=== PATIENT | male | born 1940 | race Two or more races ===

== ENCOUNTER 2021-02-05 21:39 | Inpatient (IN) | payer MEDICARE, OTHER ==
[~2021-02-05] VITALS: Ht 170.2 cm; Wt 65.8 kg
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
[2021-02-05 23:05] LABS: BASOPHILS # (AUTO) 0.2 K/uL (0.0-0.2); BASOPHILS % (AUTO) 3.4 % (0.0-2.0); EOSINOPHILS % (AUTO) 0.4 % (0.0-6.0); HEMATOCRIT 35 % (39-51); HEMOGLOBIN 11.7 g/dL (13.5-17.5); LYMPHOCYTES # (AUTO) 1.5 K/uL (0.8-4.8); LYMPHOCYTES % (AUTO) 26.3 % (20.0-44.0); MEAN CORPUSCULAR HGB CONC 33 g/dl (31.0-36.0); MEAN CORPUSCULAR VOLUME 91 fL (80-96); MONOCYTES # (AUTO) 0.4 K/uL (0.1-1.30); MONOCYTES % (AUTO) 7.3 % (2.0-12.0); NEUTROPHILS # (AUTO) 3.5 K/uL (1.8-8.9); NEUTROPHILS % (AUTO) 62.6 % (43.0-81.0); PLATELET COUNT (AUTO) 257 K/uL (150-450); RED BLOOD CELL COUNT(AUTO) 3.86 MIL/uL (4.5-6.0); WHITE BLOOD COUNT (AUTO) 5.7 K/uL (4.3-11.0)
[2021-02-05 23:22] LABS: BILIRUBIN,URINE Negative (NEGATIVE); COLOR,URINE YELLOW (YELLOW); LEUKOCYTE ESTERASE ,URINE Negative (NEGATIVE); NITRITE, URINE Negative (NEGATIVE); PH,URINE 5.5 (5.0-8.0); PROTEIN,URINE >=300 mg/dl (NEGATIVE); UGLUCOSE 250 MG/DL mg/dL (NEGATIVE); UROBILINOGEN,URINE 0.2 EU/dL (0.2)
[2021-02-05 23:27] LABS: BACTERIA,URINE Rare /HPF (None Seen); SQUAMOUS EPITHELIAL CELL,UR Few /HPF (None Seen); WBC,URINE NONE SEEN /HPF (0-3)
[2021-02-05 23:29] LABS: ALANINE AMINOTRANSFERASE 15 U/L (12-78); ALBUMIN 3.1 g/dL (3.4-5.0); ALKALINE PHOSPHATASE 99 U/L (46-116); ASPARTATE AMINOTRANSFERASE 15 U/L (15-37); BILIRUBIN,DIRECT 0.1 mg/dL (0.0-0.2); BILIRUBIN,TOTAL 0.1 mg/dL (0.2-1.0); CALCIUM, SERUM 8.4 mg/dL (8.5-10.1); CARBON DIOXIDE 24 mmol/L (21-32); CHLORIDE 101 mmol/L (98-107); CREATININE 1.9 mg/dL (0.6-1.3); GLUCOSE 97 mg/dL (74-106); POTASSIUM 4.8 mmol/L (3.5-5.1); SODIUM SERUM 133 mmol/L (136-145); TOTAL PROTEIN, SERUM 7.2 g/dL (6.4-8.2); UREA NITROGEN, BLOOD 34 mg/dL (7-18)
[2021-02-05 23:30] LABS: ACETAMINOPHEN < 2 ug/ml (10-30); ALCOHOL, BLOOD < 3 mg/dL (0-0)
[2021-02-06] VITALS (7 sets, daily range): BP systolic 138–159; BP diastolic 75–84
--- NOTE | 2021-02-06 00:15 | NUR ---
Patient is resting comfortably in bed with eyes closed. Easily aroused. VSS
--- NOTE | 2021-02-06 01:39 | NUR ---
ROOM ASSIGNMENT: 213-1 GPS
--- NOTE | 2021-02-06 01:39 | NUR ---
AWAITING FOR PSYCH DICE MANAGER
--- NOTE | 2021-02-06 01:46 | NUR ---
CALLED ESTEFANÍA CASTRO AND LEFT A MESSAGE
--- NOTE | 2021-02-06 02:05 | NUR ---
MRSA SWAB COLLECTED AND SENT TO LAB. PATIENT'S BELONGINGS LIST DONE.
--- NOTE | 2021-02-06 03:00 | NUR ---
gregorio [facility]ry [facility], at bedside
--- NOTE | 2021-02-06 03:00 | NUR ---
Sean roberto in [facility] - 02/06/21 at 0435 by CON kushal perkins, at bedside
--- NOTE | 2021-02-06 04:34 | NUR ---
REPORT GIVEN TO ANGELES OCAMPO FOR SHIRAZ
[2021-02-06] MEDS ORDERED: DICL1KIT14 TP (04:56)
[2021-02-06] MEDS ORDERED: MULT-754 PO (04:56)
[2021-02-06] MEDS ORDERED: DIVA500T54 PO (04:56)
[2021-02-06] MEDS ORDERED: ATOR40TA PO (04:56)
[2021-02-06] MEDS ORDERED: ACET650T10 PO (04:56)
[2021-02-06] MEDS ORDERED: ASPI-1420 PO (04:56)
[2021-02-06] MEDS ORDERED: METO25TA4 PO (04:56)
[2021-02-06] MEDS ORDERED: OMEG1CAP55 PO (04:56)
[2021-02-06] MEDS ORDERED: ISOS30TA86 PO (04:56)
[2021-02-06] MEDS ORDERED: TAMS-12 PO (04:56)
--- NOTE | 2021-02-06 05:28 | NUR ---
pt [place] with emt at bedside. pt is in stable condition for transport.
[2021-02-06] MEDS ORDERED: ACETAMINOPHEN 325 MG TABLET PO PRN (06:00)
[2021-02-06] MEDS ORDERED: MAGNESIUM HYDROXIDE 30 ML UDC PO PRN (06:00)
[2021-02-06] MEDS ORDERED: BLOOD SUGAR DIAGNOSTIC 1 EACH STRIP IN ONE (06:00)
[2021-02-06] MEDS ORDERED: MAG HYDROX/AL HYDROX/SIMETH 30 ML UDC PO PRN (06:00)
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
--- NOTE | 2021-02-06 07:04 | NUR ---
RN OPENING NOTES received patient awake in bed at this time, aox2, no s/o of any acute distress noted. denies si/hi, denies visual/auditory hallucination. safety precautions maintained per protocol and [id number] check per protocol
[2021-02-06] MEDS ORDERED: Medication Not On Formulary EA (Acetaminophen 650 MG) PO PRN (09:30)
--- NOTE | 2021-02-06 12:01 | NUR ---
JOHNNIE Initial Discharge Plan: Patient currently resides at [address], [place] [address]; ([phone]). Pt would want to return back upon dc. JOHNNIE will work with the MD, family, and treatment team to coordinate appropriate discharge.
--- NOTE | 2021-02-06 12:48 | NUR ---
JOHNNIE Family Contact: SW attempted to contact patient's son Henrry ([phone]) and went through voicemail, but mailbox is full.
--- NOTE | 2021-02-06 14:12 | NUR ---
SNF Contact: JOHNNIE contacted [facility] admin ([phone]) who stated they will need to discuss with treatment team to see if pt is welcomed back. [facility] will notify this SW.
[2021-02-06] MEDS ORDERED: DIVALPROEX SODIUM 500 MG PO SCH (17:00)
[2021-02-06] MEDS: ATORVASTATIN 40 MG TABLET PO SCH (17:13)
--- NOTE | 2021-02-06 18:09 | NUR ---
RN CLOSING NOTES PATIENT AWAKE , IN BED AT THIS TIME. PATIENT REMAINED STABLE THROUGHOUT SHIFT. PT DENIES SI/HI. ALL CARE, NEEDS, MEDICATIONS ADMINISTERED ANTICIPATED PER PROTOCOL. PT KEPT CLEAN AND DRY. REMAINED COMPLIANT THROUGHOUT SHIFT. SAFETY PRECAUTIONS IN PLACE AND MAINTAINED AT ALL TIMES. BED IN LOWEST LOCKED POSITION, HOB ELEVATED, SIDE RAILS UP X2, CALL LIGHT AND TABLE WITHIN REACH, [id number] MONITORING MAINTAINED. WILL ENDORSE TO MATERIAL CONTROL ANALYST NURSE FOR SHIRAZ
[2021-02-06] MEDS: clonazePAM 0.5 MG TABLET PO PRN (19:56)
--- NOTE | 2021-02-06 19:56 | NUR ---
RN NOTES: ANXIETY PT. NOTED VERY ANXIOUS SCREAMING YELLING PACING IN THE HALLWAY KLONOPIN 0.5 MG PO PRN GIVEN , WILL CONTINUE TO MONITOR.
[2021-02-06] MEDS: QUETIAPINE FUMARATE 25 MG TABLET PO SCH (21:20)
[2021-02-06] MEDS: DIVALPROEX SODIUM 250 MG TABLET.DR PO SCH (21:20)
[2021-02-07 08:00] VITALS: BP 120/59
[2021-02-07] MEDS: DIVALPROEX SODIUM 250 MG TABLET.DR PO SCH ×2 (08:22→21:01)
[2021-02-07] MEDS: MULTIVITAMINS,THERAGRAN 1 UDTAB TABLET PO SCH (08:22)
[2021-02-07] MEDS: TAMSULOSIN 0.4 MG CAP.SR.24H PO SCH (08:22)
[2021-02-07] MEDS: METOPROLOL SUCCINATE 25 MG TAB.SR.24H PO SCH (08:24)
[2021-02-07] MEDS: ISOSORBIDE MONONITRATE (30MG) 30 MG TAB.SR.24H PO SCH (08:24)
[2021-02-07] MEDS: QUETIAPINE FUMARATE 25 MG TABLET PO SCH ×2 (08:24→21:01)
[2021-02-07] MEDS: ASPIRIN EC 81 MG TABLET.DR PO SCH (08:27)
[2021-02-07 16:00] VITALS: BP 139/85
[2021-02-07] MEDS: ATORVASTATIN 40 MG TABLET PO SCH (17:15)
[2021-02-07 20:46] VITALS: BP 143/88
--- NOTE | 2021-02-08 05:03 | NUR ---
RN NOTES: REFUSED SKIN ASSESSMENT PT. REFUSED SKIN ASSESSMENT OFFERD X3 EXPLINED RISKS AND BENFITS STRONGLY REFUSED, PT.EASILY AGITATED,PARANOID , DISHELVED, UNCCOOPERTIVE ,PT. MY SKIN IS FINE, CHARGE NURSE MADE AWRE, WILL CONTINUE WITH CARE.
[2021-02-08 08:00] VITALS: BP 156/67
[2021-02-08] MEDS: MULTIVITAMINS,THERAGRAN 1 UDTAB TABLET PO SCH (08:16)
[2021-02-08] MEDS: QUETIAPINE FUMARATE 25 MG TABLET PO SCH ×2 (08:16→21:20)
[2021-02-08] MEDS: ASPIRIN EC 81 MG TABLET.DR PO SCH (08:16)
[2021-02-08] MEDS: DIVALPROEX SODIUM 250 MG TABLET.DR PO SCH ×2 (08:16→21:20)
[2021-02-08] MEDS: TAMSULOSIN 0.4 MG CAP.SR.24H PO SCH (08:17)
[2021-02-08] MEDS: ISOSORBIDE MONONITRATE (30MG) 30 MG TAB.SR.24H PO SCH (08:17)
[2021-02-08] MEDS: METOPROLOL SUCCINATE 25 MG TAB.SR.24H PO SCH (08:17)
[2021-02-08 16:06] VITALS: BP 137/70
[2021-02-08] MEDS: ATORVASTATIN 40 MG TABLET PO SCH (17:13)
--- NOTE | 2021-02-09 06:46 | NUR ---
RN NOTES : PT. PROVIDED URINE SPECIMEN , COLLECT URINE SPECIMEN AND SEND TO THE LAB.
[2021-02-09 06:57] LABS: BASOPHILS % (AUTO) 0.6 % (0.0-2.0); EOSINOPHILS % (AUTO) 2.3 % (0.0-6.0); HEMATOCRIT 32 % (39-51); HEMOGLOBIN 10.8 g/dL (13.5-17.5); LYMPHOCYTES # (AUTO) 1.9 K/uL (0.8-4.8); LYMPHOCYTES % (AUTO) 34.2 % (20.0-44.0); MEAN CORPUSCULAR HGB CONC 33 g/dl (31.0-36.0); MEAN CORPUSCULAR VOLUME 91 fL (80-96); MONOCYTES # (AUTO) 0.4 K/uL (0.1-1.30); MONOCYTES % (AUTO) 7.9 % (2.0-12.0); NEUTROPHILS # (AUTO) 3.1 K/uL (1.8-8.9); PLATELET COUNT (AUTO) 207 K/uL (150-450); RED BLOOD CELL COUNT(AUTO) 3.55 MIL/uL (4.5-6.0); WHITE BLOOD COUNT (AUTO) 5.6 K/uL (4.3-11.0)
[2021-02-09 07:28] LABS: ALANINE AMINOTRANSFERASE 13 U/L (12-78); ALBUMIN 2.7 g/dL (3.4-5.0); ALKALINE PHOSPHATASE 84 U/L (46-116); ASPARTATE AMINOTRANSFERASE 14 U/L (15-37); BILIRUBIN,TOTAL 0.1 mg/dL (0.2-1.0); CALCIUM, SERUM 8.2 mg/dL (8.5-10.1); CARBON DIOXIDE 20 mmol/L (21-32); CHLORIDE 104 mmol/L (98-107); CREATININE 2.1 mg/dL (0.6-1.3); GLUCOSE 87 mg/dL (74-106); MAGNESIUM 2.5 mg/dL (1.8-2.4); PHOSPHORUS 4.9 mg/dL (2.5-4.9); POTASSIUM 4.8 mmol/L (3.5-5.1); SODIUM SERUM 136 mmol/L (136-145); TOTAL PROTEIN, SERUM 6.4 g/dL (6.4-8.2); UREA NITROGEN, BLOOD 52 mg/dL (7-18)
[2021-02-09 07:31] LABS: CREATINE KINASE, TOTAL 22 U/L (39-308)
[2021-02-09 08:00] VITALS: BP 141/76
[2021-02-09] MEDS: DIVALPROEX SODIUM 250 MG TABLET.DR PO SCH ×2 (08:57→21:12)
[2021-02-09] MEDS: QUETIAPINE FUMARATE 25 MG TABLET PO SCH ×2 (08:57→21:14)
[2021-02-09] MEDS: MULTIVITAMINS,THERAGRAN 1 UDTAB TABLET PO SCH (08:57)
[2021-02-09] MEDS: ISOSORBIDE MONONITRATE (30MG) 30 MG TAB.SR.24H PO SCH (08:58)
[2021-02-09] MEDS: METOPROLOL SUCCINATE 25 MG TAB.SR.24H PO SCH (08:58)
[2021-02-09] MEDS: ASPIRIN EC 81 MG TABLET.DR PO SCH (08:58)
[2021-02-09] MEDS: TAMSULOSIN 0.4 MG CAP.SR.24H PO SCH (08:59)
[2021-02-09 11:10] LABS: BILIRUBIN,URINE NEGATIVE (NEGATIVE); COLOR,URINE YELLOW (YELLOW); LEUKOCYTE ESTERASE ,URINE NEGATIVE (NEGATIVE); NITRITE, URINE NEGATIVE (NEGATIVE); PROTEIN,URINE 100 mg/dl (NEGATIVE); UGLUCOSE 100 MG/DL mg/dL (NEGATIVE); UROBILINOGEN,URINE 0.2 EU/dL (0.2)
[2021-02-09 11:19] LABS: CREATININE, URINE 86.5 MG/DL (30.0-125.0); URINE TOTAL PROTEIN 71.4 mg/dL (0-11.9)
[2021-02-09 12:06] LABS: BACTERIA,URINE Rare /HPF (None Seen); RBC,URINE 0-2 /HPF (0-2); SQUAMOUS EPITHELIAL CELL,UR Few /HPF (None Seen); WBC,URINE 0-3 /HPF (0-3)
[2021-02-09 13:54] LABS: EOSINOPHIL,URINE None Seen
[2021-02-09 16:00] VITALS: BP 110/59
[2021-02-09] MEDS: ATORVASTATIN 40 MG TABLET PO SCH (17:04)
[2021-02-09 20:09] VITALS: BP_SYST 162; BP_SYST 182; BP_DIAS 76; BP_DIAS 79
[2021-02-09 20:22] VITALS: BP 162/76
[2021-02-09 21:40] VITALS: BP 149/78
[2021-02-10 08:00] VITALS: BP 160/75
[2021-02-10] MEDS: TAMSULOSIN 0.4 MG CAP.SR.24H PO SCH (08:40)
[2021-02-10] MEDS: ISOSORBIDE MONONITRATE (30MG) 30 MG TAB.SR.24H PO SCH (08:41)
[2021-02-10] MEDS: METOPROLOL SUCCINATE 25 MG TAB.SR.24H PO SCH (08:41)
[2021-02-10] MEDS: DIVALPROEX SODIUM 250 MG TABLET.DR PO SCH ×2 (08:41→21:40)
[2021-02-10] MEDS: MULTIVITAMINS,THERAGRAN 1 UDTAB TABLET PO SCH (08:41)
[2021-02-10] MEDS: QUETIAPINE FUMARATE 25 MG TABLET PO SCH ×2 (08:41→21:40)
[2021-02-10] MEDS: ASPIRIN EC 81 MG TABLET.DR PO SCH (08:41)
--- NOTE | 2021-02-10 09:00 | NUR ---
RN NOTE- PT QUIET WITHDRAWN MED COMPLIANT PO INTAKE FAIR, CONFUSED
[2021-02-10 15:06] LABS: *SPE A/G RATIO 0.7 (0.7-1.7); *SPE ALPHA-1-GLOBULIN 0.1 g/dL (0.0-0.4); *SPE ALPHA-2-GLOBULIN 0.6 g/dL (0.4-1.0); *SPE M-SPIKE Not Observed g/dL (Not Observed)
[2021-02-10 16:00] VITALS: BP 124/65
[2021-02-10] MEDS: ATORVASTATIN 40 MG TABLET PO SCH (18:02)
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
--- NOTE | 2021-02-10 20:00 | NUR ---
Resident approached nursing station and inquired with staff regarding how long he would be on hold and when he would be allowed to leave. Resident informed of his rights and advised usual hold for 5250 is 14 days. Resident became irate and combative towards CLINICAL ANALYST staff.Redirected resident to room with staff.Resident calmed down in room.Left safe in bed with all needs met.Resident wanted to file grievance,forms provided.
[2021-02-10 20:55] VITALS: BP 152/76
[2021-02-10] MEDS: TEMAZEPAM 7.5 MG CAPSULE PO PRN (21:40)
[2021-02-11 08:00] VITALS: BP 184/77
[2021-02-11] MEDS: MULTIVITAMINS,THERAGRAN 1 UDTAB TABLET PO SCH (09:05)
[2021-02-11] MEDS: DIVALPROEX SODIUM 250 MG TABLET.DR PO SCH ×2 (09:05→20:46)
[2021-02-11] MEDS: QUETIAPINE FUMARATE 25 MG TABLET PO SCH ×2 (09:05→20:46)
[2021-02-11] MEDS: METOPROLOL SUCCINATE 25 MG TAB.SR.24H PO SCH (09:06)
[2021-02-11] MEDS: ASPIRIN EC 81 MG TABLET.DR PO SCH (09:06)
[2021-02-11] MEDS: ISOSORBIDE MONONITRATE (30MG) 30 MG TAB.SR.24H PO SCH (09:06)
[2021-02-11] MEDS: TAMSULOSIN 0.4 MG CAP.SR.24H PO SCH (09:06)
--- NOTE | 2021-02-11 10:02 | NUR ---
Court Hearing: Patient's court hearing for 4730 was today and it was upheld for GD and danger to others.
--- NOTE | 2021-02-11 10:11 | NUR ---
SNF Contact: JOHNNIE contacted [facility] ([phone]) who stated pt is welcomed back upon dc.
[2021-02-11 15:45] LABS: CARBON DIOXIDE 26 mmol/L (21-32); CHLORIDE 105 mmol/L (98-107); GLUCOSE 102 mg/dL (74-106); POTASSIUM 4.8 mmol/L (3.5-5.1); SODIUM SERUM 140 mmol/L (136-145); UREA NITROGEN, BLOOD 53 mg/dL (7-18)
[2021-02-11 16:07] VITALS: BP 141/78
[2021-02-11] MEDS: ATORVASTATIN 40 MG TABLET PO SCH (18:10)
[2021-02-11 19:58] VITALS: BP 154/90
[2021-02-12 08:00] VITALS: BP 154/67
--- NOTE | 2021-02-12 09:00 | NUR ---
RN-CO: ENCOURAGED FLUIDS EVERY 2 HOURS.
[2021-02-12] MEDS: MULTIVITAMINS,THERAGRAN 1 UDTAB TABLET PO SCH (09:21)
[2021-02-12] MEDS: ISOSORBIDE MONONITRATE (30MG) 30 MG TAB.SR.24H PO SCH (09:22)
[2021-02-12] MEDS: ASPIRIN EC 81 MG TABLET.DR PO SCH (09:22)
[2021-02-12] MEDS: DIVALPROEX SODIUM 250 MG TABLET.DR PO SCH ×2 (09:22→20:42)
[2021-02-12] MEDS: METOPROLOL SUCCINATE 25 MG TAB.SR.24H PO SCH (09:22)
[2021-02-12] MEDS: TAMSULOSIN 0.4 MG CAP.SR.24H PO SCH (09:22)
[2021-02-12] MEDS: QUETIAPINE FUMARATE 25 MG TABLET PO SCH ×2 (09:22→20:42)
[2021-02-12 12:37] LABS: CALCIUM, SERUM 8.3 mg/dL (8.5-10.1); CARBON DIOXIDE 19 mmol/L (21-32); CHLORIDE 107 mmol/L (98-107); GLUCOSE 88 mg/dL (74-106); SODIUM SERUM 139 mmol/L (136-145); UREA NITROGEN, BLOOD 54 mg/dL (7-18)
[2021-02-12 12:43] LABS: ALANINE AMINOTRANSFERASE 16 U/L (12-78); ALBUMIN 2.8 g/dL (3.4-5.0); ALKALINE PHOSPHATASE 79 U/L (46-116); ASPARTATE AMINOTRANSFERASE 27 U/L (15-37); BILIRUBIN,TOTAL 0.2 mg/dL (0.2-1.0); TOTAL PROTEIN, SERUM 6.5 g/dL (6.4-8.2)
[2021-02-12 16:00] VITALS: BP 157/85
[2021-02-12] MEDS: AMLODIPINE BESYLATE 5 MG TABLET PO SCH (16:17)
[2021-02-12] MEDS: ATORVASTATIN 40 MG TABLET PO SCH (17:13)
[2021-02-12] MEDS: clonazePAM 0.5 MG TABLET PO PRN (19:41)
[2021-02-13 07:04] LABS: BASOPHILS % (AUTO) 0.7 % (0.0-2.0); EOSINOPHILS % (AUTO) 1.9 % (0.0-6.0); HEMATOCRIT 32 % (39-51); HEMOGLOBIN 10.6 g/dL (13.5-17.5); LYMPHOCYTES # (AUTO) 1.6 K/uL (0.8-4.8); LYMPHOCYTES % (AUTO) 35.4 % (20.0-44.0); MEAN CORPUSCULAR HGB CONC 34 g/dl (31.0-36.0); MEAN CORPUSCULAR VOLUME 91 fL (80-96); MONOCYTES # (AUTO) 0.4 K/uL (0.1-1.30); MONOCYTES % (AUTO) 8.5 % (2.0-12.0); NEUTROPHILS # (AUTO) 2.3 K/uL (1.8-8.9); NEUTROPHILS % (AUTO) 53.5 % (43.0-81.0); PLATELET COUNT (AUTO) 162 K/uL (150-450); RED BLOOD CELL COUNT(AUTO) 3.46 MIL/uL (4.5-6.0); WHITE BLOOD COUNT (AUTO) 4.4 K/uL (4.3-11.0)
[2021-02-13 07:27] LABS: CALCIUM, SERUM 8.2 mg/dL (8.5-10.1); CARBON DIOXIDE 23 mmol/L (21-32); CHLORIDE 106 mmol/L (98-107); GLUCOSE 87 mg/dL (74-106); MAGNESIUM 2.2 mg/dL (1.8-2.4); PHOSPHORUS 4.5 mg/dL (2.5-4.9); POTASSIUM 4.6 mmol/L (3.5-5.1); SODIUM SERUM 137 mmol/L (136-145); UREA NITROGEN, BLOOD 53 mg/dL (7-18)
[2021-02-13 08:00] VITALS: BP 151/65
[2021-02-13] MEDS: DIVALPROEX SODIUM 250 MG TABLET.DR PO SCH ×2 (08:12→20:46)
[2021-02-13] MEDS: AMLODIPINE BESYLATE 5 MG TABLET PO SCH (08:13)
[2021-02-13] MEDS: ASPIRIN EC 81 MG TABLET.DR PO SCH (08:13)
[2021-02-13] MEDS: ISOSORBIDE MONONITRATE (30MG) 30 MG TAB.SR.24H PO SCH (08:13)
[2021-02-13] MEDS: TAMSULOSIN 0.4 MG CAP.SR.24H PO SCH (08:13)
[2021-02-13] MEDS: QUETIAPINE FUMARATE 25 MG TABLET PO SCH ×2 (08:13→20:46)
[2021-02-13] MEDS: MULTIVITAMINS,THERAGRAN 1 UDTAB TABLET PO SCH (08:13)
[2021-02-13] MEDS: METOPROLOL SUCCINATE 25 MG TAB.SR.24H PO SCH (08:14)
[2021-02-13] MEDS ORDERED: AMLODIPINE BESYLATE 5 MG TABLET PO ONE (11:30)
[2021-02-13] MEDS: clonazePAM 0.5 MG TABLET PO PRN (11:36)
[2021-02-13 16:00] VITALS: BP 116/62
[2021-02-13] MEDS: ATORVASTATIN 40 MG TABLET PO SCH (17:13)
[2021-02-13 19:55] VITALS: BP 120/58
--- NOTE | 2021-02-14 06:36 | NUR ---
RN CLOSING NOTES PATIENT AWAKE IN BED AT THIS TIME. PATIENT REMAINED STABLE THROUGHOUT SHIFT. PT IS CALM AT THIS TIME, PT DENIES SI/HI. DENIES VISUAL AND AUDITORY HALLUCINATION. NO TREMORS OR EPS NOTED. SAFETY PRECAUTIONS IN PLACE AND MAINTAINED AT ALL TIMES. BED IN LOWEST LOCKED POSITION, HOB ELEVATED, SIDE RAILS UP X2, CALL LIGHT AND TABLE WITHIN REACH, WILL ENDORSE TO SECURITY CONTROL CENTER OPERATOR NURSE FOR CO Addendum: 02/14/21 at 0638 by MIKHAIL HARRELL RN RN CLOSING NOTES PATIENT AWAKE IN BED AT THIS TIME. PATIENT REMAINED STABLE THROUGHOUT SHIFT. PT IS CALM AT THIS TIME, PT DENIES SI/HI. DENIES VISUAL AND AUDITORY HALLUCINATION. NO TREMORS OR EPS NOTED. SAFETY PRECAUTIONS IN PLACE AND MAINTAINED AT ALL TIMES. BED IN LOWEST LOCKED POSITION, HOB ELEVATED, SIDE RAILS UP X2, CALL LIGHT AND TABLE WITHIN REACH, WILL ENDORSE TO SHIFT NURSE FOR CO
[2021-02-14 08:00] VITALS: BP_SYST 139; BP_SYST 157; BP_DIAS 63; BP_DIAS 76
[2021-02-14] MEDS: QUETIAPINE FUMARATE 25 MG TABLET PO SCH ×2 (08:38→21:22)
[2021-02-14] MEDS: ASPIRIN EC 81 MG TABLET.DR PO SCH (08:38)
[2021-02-14] MEDS: TAMSULOSIN 0.4 MG CAP.SR.24H PO SCH (08:38)
[2021-02-14] MEDS: MULTIVITAMINS,THERAGRAN 1 UDTAB TABLET PO SCH (08:38)
[2021-02-14] MEDS: DIVALPROEX SODIUM 250 MG TABLET.DR PO SCH ×2 (08:39→21:22)
[2021-02-14] MEDS: METOPROLOL SUCCINATE 25 MG TAB.SR.24H PO SCH (08:39)
[2021-02-14] MEDS: AMLODIPINE BESYLATE 10 MG TABLET PO SCH (08:39)
[2021-02-14] MEDS: ISOSORBIDE MONONITRATE (30MG) 30 MG TAB.SR.24H PO SCH (08:40)
[2021-02-14] MEDS: ATORVASTATIN 40 MG TABLET PO SCH (17:13)
[2021-02-14 20:21] VITALS: BP 160/79
[2021-02-15 08:00] VITALS: BP 157/69
[2021-02-15] MEDS: MULTIVITAMINS,THERAGRAN 1 UDTAB TABLET PO SCH (08:30)
[2021-02-15] MEDS: QUETIAPINE FUMARATE 25 MG TABLET PO SCH ×3 (08:30→16:15)
[2021-02-15] MEDS: ASPIRIN EC 81 MG TABLET.DR PO SCH (08:30)
[2021-02-15] MEDS: AMLODIPINE BESYLATE 10 MG TABLET PO SCH (08:30)
[2021-02-15] MEDS: TAMSULOSIN 0.4 MG CAP.SR.24H PO SCH (08:30)
[2021-02-15] MEDS: DIVALPROEX SODIUM 250 MG TABLET.DR PO SCH ×2 (08:30→21:30)
[2021-02-15] MEDS: ISOSORBIDE MONONITRATE (30MG) 30 MG TAB.SR.24H PO SCH (08:31)
[2021-02-15] MEDS: METOPROLOL SUCCINATE 25 MG TAB.SR.24H PO SCH (08:31)
[2021-02-15] MEDS: LISINOPRIL (10MG) 10 MG TABLET PO SCH (10:30)
[2021-02-15 16:00] VITALS: BP 143/81
[2021-02-15] MEDS: ATORVASTATIN 40 MG TABLET PO SCH (18:10)
[2021-02-15 20:01] VITALS: BP 146/73
[2021-02-16 08:00] VITALS: BP 156/60
[2021-02-16] MEDS: MULTIVITAMINS,THERAGRAN 1 UDTAB TABLET PO SCH (08:08)
[2021-02-16] MEDS: TAMSULOSIN 0.4 MG CAP.SR.24H PO SCH (08:08)
[2021-02-16] MEDS: ASPIRIN EC 81 MG TABLET.DR PO SCH (08:08)
[2021-02-16] MEDS: LISINOPRIL (10MG) 10 MG TABLET PO SCH (08:08)
[2021-02-16] MEDS: AMLODIPINE BESYLATE 10 MG TABLET PO SCH (08:08)
[2021-02-16] MEDS: QUETIAPINE FUMARATE 25 MG TABLET PO SCH ×3 (08:08→16:42)
[2021-02-16] MEDS: ISOSORBIDE MONONITRATE (30MG) 30 MG TAB.SR.24H PO SCH (08:09)
[2021-02-16] MEDS: METOPROLOL SUCCINATE 25 MG TAB.SR.24H PO SCH (08:09)
[2021-02-16] MEDS: DIVALPROEX SODIUM 250 MG TABLET.DR PO SCH ×2 (08:09→21:35)
[2021-02-16 16:00] VITALS: BP 115/78
[2021-02-16] MEDS: ATORVASTATIN 40 MG TABLET PO SCH (16:42)
[2021-02-16 19:52] VITALS: BP 127/75
--- NOTE | 2021-02-16 20:19 | NUR ---
Per Barrel Assembly Inspector Pt refused blood draw. Offered x3 and explained risk and benefits. Still refused. Charge Nurse aware.
[2021-02-16] MEDS: TEMAZEPAM 7.5 MG CAPSULE PO PRN (21:36)
--- NOTE | 2021-02-16 21:38 | NUR ---
Pt c/o generalized body pain 05/29. Tylenol 650 mg po prn given as ordered. Pt c/o insomnia. Least restrictive measures ineffective. Restoril 15 mg po prn given as ordered. Will continue to monitor.
--- NOTE | 2021-02-16 22:39 | NUR ---
Post 1 hr tylenol effective. VT 0/10. Restoril effective. Pt asleep in bed easy to arouse. Will continue to monitor. Frequent visual check done for safety. Will endorse to next shift.
[2021-02-17 08:00] VITALS: BP 150/82
--- NOTE | 2021-02-17 09:05 | NUR ---
SNF Contact: SW contacted [facility] admin ([phone]) and the clinic receptionist stated that [facility] is sick and unavailable and that they don't have any admissions available at this time.
[2021-02-17] MEDS: ASPIRIN EC 81 MG TABLET.DR PO SCH (10:04)
[2021-02-17] MEDS: AMLODIPINE BESYLATE 10 MG TABLET PO SCH (10:04)
[2021-02-17] MEDS: TAMSULOSIN 0.4 MG CAP.SR.24H PO SCH (10:04)
[2021-02-17] MEDS: DIVALPROEX SODIUM 250 MG TABLET.DR PO SCH ×2 (10:05→20:51)
[2021-02-17] MEDS: METOPROLOL SUCCINATE 25 MG TAB.SR.24H PO SCH (10:05)
[2021-02-17] MEDS: QUETIAPINE FUMARATE 25 MG TABLET PO SCH ×3 (10:06→17:43)
[2021-02-17] MEDS: ISOSORBIDE MONONITRATE (30MG) 30 MG TAB.SR.24H PO SCH (10:06)
[2021-02-17] MEDS: MULTIVITAMINS,THERAGRAN 1 UDTAB TABLET PO SCH (10:06)
[2021-02-17] MEDS: LISINOPRIL (10MG) 10 MG TABLET PO SCH (10:08)
--- NOTE | 2021-02-17 13:06 | NUR ---
SNF Contact: JOHNNIE spoke with Colleen nursing supervisor heat treating ([phone]) from [facility]. SW notified of pt's discharge on 02/19/2021. She stated admissions has to re-admit pt but will notify staff of his arrival on 02/19/2021. JOHNNIE will follow up with [facility] Bess from admissions on 02/18/2021. JOHNNIE faxed updated clinicals to ([phone]).
[2021-02-17 16:00] VITALS: BP 120/57
[2021-02-17] MEDS: ATORVASTATIN 40 MG TABLET PO SCH (17:44)
[2021-02-17] MEDS: TEMAZEPAM 7.5 MG CAPSULE PO PRN (22:37)
[2021-02-18 08:00] VITALS: BP 161/76
[2021-02-18] MEDS: LISINOPRIL (10MG) 10 MG TABLET PO SCH (08:52)
[2021-02-18] MEDS: DIVALPROEX SODIUM 250 MG TABLET.DR PO SCH ×2 (08:52→21:02)
[2021-02-18] MEDS: METOPROLOL SUCCINATE 25 MG TAB.SR.24H PO SCH (08:52)
[2021-02-18] MEDS: TAMSULOSIN 0.4 MG CAP.SR.24H PO SCH (08:53)
[2021-02-18] MEDS: QUETIAPINE FUMARATE 25 MG TABLET PO SCH ×3 (08:53→16:52)
[2021-02-18] MEDS: AMLODIPINE BESYLATE 10 MG TABLET PO SCH (08:53)
[2021-02-18] MEDS: ASPIRIN EC 81 MG TABLET.DR PO SCH (08:53)
[2021-02-18] MEDS: MULTIVITAMINS,THERAGRAN 1 UDTAB TABLET PO SCH (08:53)
[2021-02-18] MEDS: ISOSORBIDE MONONITRATE (30MG) 30 MG TAB.SR.24H PO SCH (08:53)
--- NOTE | 2021-02-18 10:37 | NUR ---
SNF Contact: SW spoke with Purnima Eason from [facility] ([phone]) who stated pt is welcomed back tomorrow.
--- NOTE | 2021-02-18 10:38 | NUR ---
JOHNNIE Family Contact: JOHNNIE attempted to contact patient's son Henrry ([phone]) and notified of patient's discharge tomorrow 02/19 back to [facility]. JOHNNIE was unable to leave a voicemail. JOHNNIE sent a text message on personal phone to notify son.
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
--- NOTE | 2021-02-18 13:54 | NUR ---
SNF Contact: SW spoke with Purnima Eason from [facility] ([phone]) who stated again that they cannot accept pt back.
--- NOTE | 2021-02-18 13:55 | NUR ---
JOHNNIE Family Contact: SW attempted to contact patient's son Henrry ([phone]). This is the second attempt SW attempted to contact but does not have a voicemail set up. JOHNNIE texted Henrry multiple times of this issue that [facility] cannot take pt back and that pt is wanting to go to another facility.
--- NOTE | 2021-02-18 13:56 | NUR ---
JOHNNIE Note: JOHNNIE spoke with patient and he stated he does not want to go back to [facility] and wants to go to another facility and is open for this appeals writer to find a facility in the [place] location.
[2021-02-18 16:01] VITALS: BP 122/59
[2021-02-18] MEDS: ATORVASTATIN 40 MG TABLET PO SCH (17:02)
[2021-02-18 20:00] VITALS: BP 149/73
[2021-02-18] MEDS: TEMAZEPAM 7.5 MG CAPSULE PO PRN (22:02)
--- NOTE | 2021-02-18 22:04 | NUR ---
GPS RN NOTES: Patient requested for sleep medication d/t insomnia. Restoril 15mg given PO at 2202. Will continue to monitor.
[2021-02-19 08:00] VITALS: BP 118/59
[2021-02-19] MEDS: ASPIRIN EC 81 MG TABLET.DR PO SCH (09:25)
[2021-02-19] MEDS: TAMSULOSIN 0.4 MG CAP.SR.24H PO SCH (09:26)
[2021-02-19] MEDS: MULTIVITAMINS,THERAGRAN 1 UDTAB TABLET PO SCH (09:26)
[2021-02-19] MEDS: QUETIAPINE FUMARATE 25 MG TABLET PO SCH ×3 (09:26→16:30)
[2021-02-19] MEDS: DIVALPROEX SODIUM 250 MG TABLET.DR PO SCH ×2 (09:26→20:28)
[2021-02-19] MEDS: ISOSORBIDE MONONITRATE (30MG) 30 MG TAB.SR.24H PO SCH (09:38)
[2021-02-19] MEDS: METOPROLOL SUCCINATE 25 MG TAB.SR.24H PO SCH (09:38)
[2021-02-19] MEDS: AMLODIPINE BESYLATE 10 MG TABLET PO SCH (09:39)
[2021-02-19] MEDS: LISINOPRIL (10MG) 10 MG TABLET PO SCH (09:40)
--- NOTE | 2021-02-19 09:47 | NUR ---
SNF Referral: SW sent clinicals to [facility] directly to [facility] ([phone]) for placement option.
--- NOTE | 2021-02-19 09:51 | NUR ---
JOHNNIE SNF Referral/Contact: JOHNNIE sent clinicals to Abbey from [facility] ([phone]) who denied pt due to behavior issues. JOHNNIE had sent H & P notes, progress notes, and medication list.
--- NOTE | 2021-02-19 09:54 | NUR ---
SNF Referral: SW sent clinicals to Austin Arellano [facility] ([phone]) for placement option. SW sent H & P notes, progress notes, and medication list.
--- NOTE | 2021-02-19 13:40 | NUR ---
SNF Contact: SW received a call from [facility] from [facility] admin ([phone]) who stated that pt is accepted.
--- NOTE | 2021-02-19 13:41 | NUR ---
SW Note: SW met with pt and stated he is accepted at [facility] and he was agreeable of going to this facility.
--- NOTE | 2021-02-19 13:43 | NUR ---
JOHNNIE Family Contact: SW attempted to contact patient's son Henrry ([phone]), he was unavailable, and voicemail is not set up for this SW to leave a message. SW sent a message with cellphone informing of pt's discharge and that pt is accepted at [facility] and that pt is agreeable with going to this facility.
--- NOTE | 2021-02-19 15:52 | NUR ---
SW Family Contact: Pt's son Henrry ([phone]) responded to this writers personal cellphone in regards to message being sent that pt is accepted at [facility] and will discharge wednesday 02/21. He stated "Okay". He stated that he has been busy with work and it has been difficult for him to be in communication with this SW.
[2021-02-19 16:00] VITALS: BP 116/58
[2021-02-19] MEDS: ATORVASTATIN 40 MG TABLET PO SCH (17:30)
[2021-02-19 20:00] VITALS: BP 112/59
[2021-02-19] MEDS: TEMAZEPAM 7.5 MG CAPSULE PO PRN (20:28)
[2021-02-20 08:00] VITALS: BP_SYST 127; BP_SYST 138; BP_DIAS 58; BP_DIAS 64
[2021-02-20] MEDS: AMLODIPINE BESYLATE 10 MG TABLET PO SCH (09:25)
[2021-02-20] MEDS: TAMSULOSIN 0.4 MG CAP.SR.24H PO SCH (09:25)
[2021-02-20] MEDS: MULTIVITAMINS,THERAGRAN 1 UDTAB TABLET PO SCH (09:26)
[2021-02-20] MEDS: DIVALPROEX SODIUM 250 MG TABLET.DR PO SCH ×2 (09:26→21:13)
[2021-02-20] MEDS: ASPIRIN EC 81 MG TABLET.DR PO SCH (09:26)
[2021-02-20] MEDS: QUETIAPINE FUMARATE 25 MG TABLET PO SCH ×3 (09:26→16:26)
[2021-02-20] MEDS: ISOSORBIDE MONONITRATE (30MG) 30 MG TAB.SR.24H PO SCH (09:26)
[2021-02-20] MEDS: LISINOPRIL (10MG) 10 MG TABLET PO SCH (09:27)
[2021-02-20] MEDS: METOPROLOL SUCCINATE 25 MG TAB.SR.24H PO SCH (09:27)
[2021-02-20 16:00] VITALS: BP 137/68
[2021-02-20] MEDS: ATORVASTATIN 40 MG TABLET PO SCH (17:42)
[2021-02-20 20:00] VITALS: BP 122/52
[2021-02-20 21:30] VITALS: BP 123/67
--- NOTE | 2021-02-21 06:41 | NUR ---
RN NOTES: COVID SWAB COLLECTED AND SENT TO LAB
[2021-02-21 08:00] VITALS: BP 156/71
--- NOTE | 2021-02-21 08:10 | NUR ---
SW Discharge Note: Patient will be discharged to [facility] facility [facility] located at [address] [place] [address]; ([phone]). Please arrange ambulance at 1PM. Bitumen Plant Operator spoke with Kendy/Zoe Roof Technician ([phone]) who stated patient will be accepted at facility today. Patient is alert and oriented x3 and is not able to plan for self-care at this time but is willing to accept care provided by the facility. Patient denies any suicidal or homicidal ideations. Patient is aware and agreeable with discharge plans. Patients son Henrry ([phone]) is aware of discharge, SW has left messages multiple times. Patient will continue to follow-up with (psychiatrist) Dr. Lewis located at [address] [facility] [address] [address]; ([phone]) and (Pharmacy Data Analyst) Dr. Olivera [address] [facility] [address] [address]; ([phone]). Patient presents with euthymic mood and congruent affect.
--- NOTE | 2021-02-21 08:23 | NUR ---
Cornell Ayala gave an order to D/C Hold and D/C to [facility] and to follow up with psych and medical doctors. MATERIALS HANDLING COORDINATOR reconciled meds.
[2021-02-21] MEDS: ISOSORBIDE MONONITRATE (30MG) 30 MG TAB.SR.24H PO SCH (08:55)
[2021-02-21] MEDS: MULTIVITAMINS,THERAGRAN 1 UDTAB TABLET PO SCH (08:55)
[2021-02-21] MEDS: TAMSULOSIN 0.4 MG CAP.SR.24H PO SCH (08:55)
[2021-02-21] MEDS: QUETIAPINE FUMARATE 25 MG TABLET PO SCH ×2 (08:55→12:15)
[2021-02-21 08:56] VITALS: BP 156/71
[2021-02-21] MEDS: LISINOPRIL (10MG) 10 MG TABLET PO SCH (08:56)
[2021-02-21] MEDS: DIVALPROEX SODIUM 250 MG TABLET.DR PO SCH (08:56)
[2021-02-21] MEDS: METOPROLOL SUCCINATE 25 MG TAB.SR.24H PO SCH (08:56)
[2021-02-21] MEDS: AMLODIPINE BESYLATE 10 MG TABLET PO SCH (08:56)
[2021-02-21] MEDS: ASPIRIN EC 81 MG TABLET.DR PO SCH (08:57)
--- NOTE | 2021-02-21 14:07 | NUR ---
RN-DISCHARGE NOTES PATIENT HAD A DISCHARGE ORDER FROM DNP OLYA/MARIE ( PSYCHIATRIST) [facility] ( WELT ROUGHER) MEDICALLY CLEARED PATIENT FOR DISCHARGE. REPORT WAS GIVEN TO THE FACILITY DON (JUAN ANTONIO ). PATIENT DID NOT VERBALIZE SI/HI,DENIES VISUAL /AUDITORY HALLUCINATIONS AT THE TIME OF DISCHARGE. PATIENT LEFT THE UNIT IN STABLE CONDITION A/O X3 AMBULATORY WITH WALKER .PATIENT REFUSED FULL BODY ASSESSMENT PRIOR TO DISCHARGE STATED" NOTHING WRONG WITH MY SKIN,ITS ONLY SCAR". EXPLAINED HOSPITAL POLICIES BUT PATIENT STILL REFUSED. PER SW NOTES PATIENT'S SON PATRICIA WAS AWARE OF THE DISCHARGE.PATIENT LEFT THE UNIT WITH ALL BELONGINGS.MANAGER MILITARY BY AMBULANCE VIA GURNEY WITH TWO STAFF ASSIST.
== END 2021-02-21 14:00 | DRG 885 ==
LOC: ER 21:43 → GPS 02-06 05:13
PROVIDERS: ADMIT Nurse Practitioner Psychiatric/Mental Health; ATTEND Registered Nurse
DX: F29 Unspecified psychosis not due to a substance or known physiological condition (principal); N17.9 Acute kidney failure, unspecified; N18.9 Chronic kidney disease, unspecified; F41.9 Anxiety disorder, unspecified; Z20.822 Contact with and (suspected) exposure to COVID-19; E78.5 Hyperlipidemia, unspecified; R13.10 Dysphagia, unspecified; F39 Unspecified mood [affective] disorder; Z73.6 Limitation of activities due to disability; K21.9 Gastro-esophageal reflux disease without esophagitis; I35.0 Nonrheumatic aortic (valve) stenosis; I25.10 Atherosclerotic heart disease of native coronary artery without angina pectoris; N40.0 Benign prostatic hyperplasia without lower urinary tract symptoms; F32.A Depression, unspecified; I12.9 Hypertensive chronic kidney disease with stage 1 through stage 4 chronic kidney disease, or unspecified chronic kidney disease
CPT/HCPCS: 36415; 76770-TC; 80048-TC; 80053-TC; 80076-TC; 80164-TC; 81001; 82550-TC; 82570-TC; 83735-TC; 83970; 84100-TC; 84155; 84155-TC; 84165; 84300-TC; 85025-TC; 87081-TC; 92526; 92611-TC; 97116-TC; 97530-TC; C9803; G0480